=== PATIENT | female | born 1995 | race Caucasian/White ===

== ENCOUNTER → 2018-02-03 | Outpatient (REF) | payer OTHER ==
[2018-02-03 22:27] LABS: CHLAMYDIA DNA AMPLIFICATION NEGATIVE (NEGATIVE); GC DNA AMPLIFICATION NEGATIVE (NEGATIVE)
== END ==
LOC: M SFHCLERA 16:35
DX: N89.8 Other specified noninflammatory disorders of vagina (principal)

== ENCOUNTER → 2018-06-25 | Outpatient (CLI) | payer OTHER ==
--- NOTE | 2018-06-26 03:26 | REP ---
Clinical: Left knee pain. Technique: AP, lateral and sunrise views of the left knee. Findings: Osseous structures, joint spaces, and surrounding soft tissues appear normal. No acute fracture dislocation. No effusion. No obvious degenerative changes. Impression: Normal left knee radiographs. Electronically Signed by Gamal Solis MD 06/26/2018 03:18 A
== END ==
LOC: M LRY 11:28
PROVIDERS: ATTEND Nurse Practitioner Adult Health
DX: M25.562 Pain in left knee (principal)